=== PATIENT | male | born 1955 | race Caucasian/White ===

== ENCOUNTER 2023-02-15 08:15 | Day surgery (SDC) | payer OTHER ==
[~2023-02-15] VITALS: Ht 167.6 cm; Wt 81.6 kg
[~2023-02-15 08:15] MED LIST: LEVOTHYROXIN125 MC1 PO; SPIRONO/HCTZ PO; TRIGLIDE160 MG PO
[2023-02-15 12:29] VITALS: BP 142/81
[2023-02-15] MEDS ORDERED: LORTAB 5/3255 MG PO (12:30)
== END 2023-02-15 13:00 | disposition designated cancer center or children's hospital (05) | DRG 419 ==
LOC: ORM 08:15
PROVIDERS: ATTEND Surgery
PROC: 0FT44ZZ Resection of Gallbladder, Percutaneous Endoscopic Approach (ICD-10-PCS; principal; 2023-02-15)
DX: K80.10 Calculus of gallbladder with chronic cholecystitis without obstruction (principal); K42.9 Umbilical hernia without obstruction or gangrene; I10 Essential (primary) hypertension
CPT/HCPCS: J0131; J0690; J1610; Q9966